=== PATIENT | female | born 1980 | race Two or more races ===

== ENCOUNTER 2018-09-24 18:45 | Emergency (ER) | payer OTHER ==
[2018-09-24 19:44] LABS: BASOPHILS # (AUTO) 0.1 10^3/uL (0.0-0.1); BASOPHILS % (AUTO) 0.6 %; EOSINOPHILS # (AUTO) 0.1 10^3/uL (0.0-0.7); EOSINOPHILS % (AUTO) 1.3 %; HGB - HEMOGLOBIN 10.6 g/dL (12.0-16.0); LYMPHOCYTES # (AUTO) 2.2 10^3/uL (1.5-3.5); LYMPHOCYTES % (AUTO) 22.4 %; MEAN CORPUSCULAR HEMOGLOBIN 26.9 pg (27.0-31.0); MEAN CORPUSCULAR HGB CONC 32.4 g/dL (32.0-36.0); MEAN PLATELET VOLUME 7.2 fL (7.9-10.8); MONOCYTES # (AUTO) 0.7 10^3/uL (0.0-1.0); MONOCYTES % (AUTO) 6.7 %; NEUTROPHILS # (AUTO) 6.8 10^3/uL (1.5-6.6); PLT - PLATELET COUNT 327 10^3/uL (130-450); RED BLOOD COUNT 3.94 10^6/uL (4.20-5.40); RED CELL DISTRIBUTION WIDTH 14.7 % (12.0-15.0); WHITE BLOOD COUNT 9.9 x10^3/uL (4.8-10.8)
[2018-09-24 19:59] LABS: ALBUMIN/GLOBULIN RATIO 1.1 (1.0-2.2); BILIRUBIN,TOTAL 0.7 mg/dL (0.2-1.0); CALCIUM 8.9 mg/dL (8.5-10.3); CREATININE 0.9 mg/dL (0.4-1.0); TOTAL PROTEIN 7.6 g/dL (6.7-8.2)
--- NOTE | 2018-09-24 20:01 | XRAY Report ---
Reason: Chest Pain Procedure Date: 09/24/2018 Accession Number: [id number] / [id number] Procedure: XR - Chest 1 View X-Ray CPT Code: 80052 FULL RESULT: EXAM: CHEST RADIOGRAPHY EXAM DATE: 09/24/2018 07:56 PM. CLINICAL HISTORY: Chest Pain. COMPARISON: None. TECHNIQUE: 1 view. FINDINGS: Lungs/Pleura: No focal opacities evident. No pleural effusion. No pneumothorax. Mediastinum: Within exam limitations, the cardiomediastinal contour is normal. Other: None. IMPRESSION: Normal single view chest. RADIA
--- NOTE | 2018-09-24 20:06 | ED Physician Documentation ---
History of Present Illness - Stated complaint Stated Complaint: SOA/TIGHTNESS - Chief complaint Chief Complaint: Resp - History obtained from History obtained from: Patient - History of Present Illness Timing: Yesterday Pain level now: 1 Improved by: exertion Worsened by: rest (patient points out that, paradoxically, she tends to only notice the dysnea and palpitations while at rest and not with activity) - Additonal information Additional information: c/o episodic dizziness, dyspnea (manifest as feeling she can't take a full breath in at times), palpitations (rapid, pounding) ,chest tightness. episode yesterday that resolved and again this evening Review of Systems Constitutional: denies: Fever, Chills, Sweats Cardiac: reports: Palpitations. denies: Chest pain / pressure, Pedal edema, Calf pain Respiratory: reports: Dyspnea. 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 - Present Medications Home Medications: Ambulatory Orders Medication Instructions Recorded Confirmed Levothyroxine Sodium [Synthroid] 09/24/18 Pnv95/Ferrous Fumarate/FA 09/24/18 09/24/18 [ Tablet] - Allergies Allergies/Adverse Reactions: Allergies Allergy/AdvReac Type Severity Reaction Status Date / Time No Known Drug Allergies Allergy Verified 09/24/18 19:07 - Social History Does the pt smoke?: No Smoking Status: Never smoker Does the pt drink ETOH?: Yes - Immunizations Immunizations are current?: Yes - POLST Patient has POLST: No PD ED PE NORMAL - Vitals Vital signs reviewed: Yes - General General: Alert and oriented X 3, No acute distress, Well developed/nourished - HEENT HEENT: Moist mucous membranes - Neck Neck: Supple, no meningeal sign - Cardiac Cardiac: RRR, No murmur, No gallop, No rub - Respiratory Respiratory: No respiratory distress, Clear bilaterally - Abdomen Abdomen: Soft, Non tender - Derm Derm: Normal color, Warm and dry - Extremities Extremities: No edema Results - Vitals Vitals: Vital Signs - 24 hr 09/24/18 09/24/18 09/24/18 19:03 19:16 19:57 Temperature 37.4 C Heart Rate 87 82 78 Respiratory 18 12 13 Rate Blood Pressure 146/71 H 151/73 H 121/75 O2 Saturation 100 100 100 09/24/18 21:15 Temperature 36.5 C Heart Rate 89 Respiratory 18 Rate Blood Pressure 136/82 H O2 Saturation 100 Oxygen O2 Source Room air - EKG (time done) No standard instances Rate: Rate (enter#) (89) Rhythm: NSR, LAE [place]: Normal Intervals: Normal HI QRS: Normal Ischemia: Normal ST segments - Labs Labs: Laboratory Tests 09/24/18 09/24/18 09/24/18 19:38 19:38 19:38 WBC 9.9 RBC 3.94 L Hgb 10.6 L Hct 32.7 L MCV 83.0 MCH 26.9 L MCHC 32.4 RDW 14.7 Plt Count 327 MPV 7.2 L Neut # (Auto) 6.8 H Lymph # (Auto) 2.2 [place] # (Auto) 0.7 Eos # (Auto) 0.1 Baso # (Auto) 0.1 Absolute Nucleated RBC 0.00 Nucleated RBC % 0.0 Sodium 137 Potassium 4.0 Chloride 104 Carbon Dioxide 28 Anion Gap 5.0 L BUN 19 Creatinine 0.9 Estimated GFR (MDRD) 70 L Glucose 106 H Calcium 8.9 Total Bilirubin 0.7 AST 15 ALT 15 Alkaline Phosphatase 51 Troponin I < 0.04 Total Protein 7.6 Albumin 4.0 Globulin 3.6 Albumin/Globulin Ratio 1.1 Lipase 50 TSH Free T4 09/24/18 19:38 WBC RBC Hgb Hct MCV MCH MCHC RDW Plt Count MPV Neut # (Auto) Lymph # (Auto) [place] # (Auto) Eos # (Auto) Baso # (Auto) Absolute Nucleated RBC Nucleated RBC % Sodium Potassium Chloride Carbon Dioxide Anion Gap BUN Creatinine Estimated GFR (MDRD) Glucose Calcium Total Bilirubin AST ALT Alkaline Phosphatase Troponin I Total Protein Albumin Globulin Albumin/Globulin Ratio Lipase TSH 2.16 Free T4 0.87 - Rads (name of study) chest xray Radiology: Prelim report reviewed, See rad report PD MEDICAL DECISION MAKING - ED course Complexity details: reviewed results, re-evaluated patient, considered differential, d/w patient Departure - Departure Disposition: 01 Home, Self Care Clinical Impression: Dyspnea, Chest pain, Palpitations Condition: Good Instructions: ED Chest Pain Atypical Unkn Cause, ED Dyspnea Shortness of Breath, ED Palpitations Follow-Up: PITO Berg [Provider Group] Discharge Date/Time: 09/24/18 21:20
[2018-09-24 20:26] LABS: THYROID STIMULATING HORMONE 2.16 uIU/mL (0.34-5.60)
[2018-09-24 20:28] LABS: FREE T4 (FREE THYROXINE) 0.87 ng/dL (0.58-1.64)
[2018-09-24 21:24] VITALS: BP 136/82
== END 2018-09-24 21:20 | disposition home or self-care (01) ==
LOC: ED 18:45
DX: R06.00 Dyspnea, unspecified (principal); R07.9 Chest pain, unspecified; R00.2 Palpitations; E03.9 Hypothyroidism, unspecified
CPT/HCPCS: 36415; 71045; 80053; 83690; 84439; 84443; 84484; 85025; 93005; 99283; 99284

== ENCOUNTER 2018-10-04 23:09 | Emergency (ER) | payer OTHER ==
[2018-10-04 23:45] LABS: BASOPHILS # (AUTO) 0.1 10^3/uL (0.0-0.1); EOSINOPHILS # (AUTO) 0.2 10^3/uL (0.0-0.7); EOSINOPHILS % (AUTO) 1.4 %; HGB - HEMOGLOBIN 10.6 g/dL (12.0-16.0); LYMPHOCYTES # (AUTO) 2.9 10^3/uL (1.5-3.5); LYMPHOCYTES % (AUTO) 25.3 %; MEAN CORPUSCULAR HEMOGLOBIN 27.4 pg (27.0-31.0); MEAN CORPUSCULAR HGB CONC 33.7 g/dL (32.0-36.0); MEAN CORPUSCULAR VOLUME 81.2 fL (81.0-99.0); MEAN PLATELET VOLUME 7.3 fL (7.9-10.8); MONOCYTES # (AUTO) 0.7 10^3/uL (0.0-1.0); MONOCYTES % (AUTO) 5.9 %; NEUTROPHILS # (AUTO) 7.6 10^3/uL (1.5-6.6); NEUTROPHILS % (AUTO) 66.4 %; PLT - PLATELET COUNT 354 10^3/uL (130-450); RED BLOOD COUNT 3.87 10^6/uL (4.20-5.40); RED CELL DISTRIBUTION WIDTH 13.8 % (12.0-15.0); WHITE BLOOD COUNT 11.5 x10^3/uL (4.8-10.8)
[2018-10-04 23:56] LABS: ALBUMIN 4.1 g/dL (3.2-5.5); ALBUMIN/GLOBULIN RATIO 1.1 (1.0-2.2); BILIRUBIN,TOTAL 0.6 mg/dL (0.2-1.0); CALCIUM 8.8 mg/dL (8.5-10.3); CREATININE 0.8 mg/dL (0.4-1.0); TOTAL PROTEIN 7.7 g/dL (6.7-8.2)
--- NOTE | 2018-10-05 04:08 | ED Physician Documentation ---
PD HPI DYSPNEA - Stated complaint Stated Complaint: SOA - Chief complaint Chief Complaint: Resp - History obtained from History obtained from: Patient - History of Present Illness Timing - onset: Today Timing - details: Abrupt onset, Intermittant Pain level now: 0 Associated symptoms: Palpitations. No: Fever, Cough, Hemoptysis, Wheezing, Chest pain / discomfort, Diaphoresis, Bilateral edema, Unilateral edema, Anxiety, Other Similar symptoms before: No diagnosis Recently seen: Clinic, Emergency Dept - Additional information Additional information: T+R from this ED for same sx 09/24, tests at that time did not yield diagnosis. She followed up with PMD, rx propranolol, iron supplements, and referred to cardiology (not yet scheduled). Returns due to increased frequency and severity of symptoms: palpitations and dyspnea. Denies pain including chest pain Review of Systems Constitutional: reports: Reviewed and negative Cardiac: reports: Palpitations. 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 Home Medications: Ambulatory Orders Medication Instructions Recorded Confirmed Levothyroxine Sodium [Synthroid] 09/24/18 Pnv95/Ferrous Fumarate/FA 09/24/18 09/24/18 [ Tablet] - Allergies Allergies/Adverse Reactions: Allergies Allergy/AdvReac Type Severity Reaction Status Date / Time No Known Drug Allergies Allergy Verified 10/04/18 23:17 - Social History Does the pt smoke?: No Smoking Status: Never smoker Does the pt drink ETOH?: Yes - Immunizations Immunizations are current?: Yes - POLST Patient has POLST: No PD ED PE NORMAL - Vitals Vital signs reviewed: Yes - General General: Alert and oriented X 3, No acute distress, Well developed/nourished - HEENT HEENT: Moist mucous membranes - Cardiac Cardiac: RRR, No murmur, No gallop, No rub - Respiratory Respiratory: No respiratory distress, Clear bilaterally - Abdomen Abdomen: Soft, Non tender - Derm Derm: Normal color, Warm and dry - Extremities Extremities: No edema Results - Vitals Vitals: Vital Signs - 24 hr 10/05/18 10/05/18 10/05/18 02:08 04:37 06:22 Heart Rate 79 77 76 Respiratory 12 17 17 Rate Blood Pressure 109/67 111/62 117/72 O2 Saturation 100 99 98 Oxygen O2 Source Room air - Labs Labs: Laboratory Tests 10/04/18 10/04/18 10/04/18 23:30 23:30 23:30 WBC 11.5 H RBC 3.87 L Hgb 10.6 L Hct 31.4 L MCV 81.2 MCH 27.4 MCHC 33.7 RDW 13.8 Plt Count 354 MPV 7.3 L Neut # (Auto) 7.6 H Lymph # (Auto) 2.9 [place] # (Auto) 0.7 Eos # (Auto) 0.2 Baso # (Auto) 0.1 Absolute Nucleated RBC 0.00 Nucleated RBC % 0.0 Sodium 136 Potassium 3.7 Chloride 102 Carbon Dioxide 25 Anion Gap 9.0 BUN 18 Creatinine 0.8 Estimated GFR (MDRD) 80 L Glucose 94 Calcium 8.8 Total Bilirubin 0.6 AST 18 ALT 16 Alkaline Phosphatase 57 Total Protein 7.7 Albumin 4.1 Globulin 3.6 Albumin/Globulin Ratio 1.1 Lipase 44 Blood Type B NEGATIVE Antibody Screen NEGATIVE - Rads (name of study) CT chest (PE study) Radiology: Prelim report reviewed, See rad report PD MEDICAL DECISION MAKING - ED course Complexity details: reviewed results, re-evaluated patient, considered differential, d/w patient Departure - Departure Disposition: 01 Home, Self Care Clinical Impression: Palpitations, Dyspnea Condition: Good Instructions: ED Dyspnea Shortness of Breath, ED Palpitations Follow-Up: ISAURA IGNACIO DO [Primary Care Provider] - Within 1 week Discharge Date/Time: 10/05/18 07:17
[2018-10-05] MEDS ORDERED: IOVERSOL 320 100 ML VIAL IVP ONE (04:44)
[2018-10-05] MEDS: IOVERSOL 320 100 ML VIAL IVP ONE (05:41)
--- NOTE | 2018-10-05 06:08 | CT Report ---
Reason: dyspnea, CP Procedure Date: 10/05/2018 Accession Number: [id number] / [id number] Procedure: CT - Chest Angio (PE) CPT Code: FULL RESULT: EXAM: CT ANGIOGRAM CHEST EXAM DATE: 10/05/2018 05:32 AM. CLINICAL HISTORY: Dyspnea and chest pain. COMPARISON: None. TECHNIQUE: Routine helical imaging was performed through the chest in the pulmonary arterial phase. IV Contrast: OPTI 320 80mL. Reconstructions: Coronal 3-D MIP reconstructions.Sagittal and coronal. In accordance with CT protocol optimization, one or more of the following dose reduction techniques were utilized for this exam: automated exposure control, adjustment of mA and/or KV based on patient size, or use of iterative reconstructive technique. FINDINGS: Pulmonary Arteries: There is a suboptimal opacification of the pulmonary arterial system. Motion further degrades exam sensitivity and specificity, particularly with regards to the main pulmonary artery. As visualized, no definite main or lobar pulmonary embolism demonstrated. Lungs and Pleura: No significant consolidation. No effusion or definite pneumothorax. Central Airways: Visualized central airways are without suspicious filling defects. Chest Wall: No significant abnormality. Thyroid: No significant abnormality. Mediastinum: No significant abnormality. Heart: Normal in size. No significant pericardial effusion. Aorta: Normal caliber. Upper Abdomen: No significant abnormality. Bones: No suspicious bony lesions evident. IMPRESSION: 1. There is suboptimal opacification of the pulmonary artery. No definite or lobar embolus. 2. No acute pulmonary abnormality demonstrated.
[2018-10-05 06:22] VITALS: BP 117/72
== END 2018-10-05 07:17 | disposition home or self-care (01) ==
LOC: ED 23:09
DX: R00.2 Palpitations (principal); R06.00 Dyspnea, unspecified; E03.9 Hypothyroidism, unspecified
CPT/HCPCS: 36415; 71275; 80053; 83690; 85025; 86850; 86900; 86901; 99283; 99284

== ENCOUNTER 2018-12-17 21:48 | Emergency (ER) | payer OTHER ==
[2018-12-17 22:22] LABS: BASOPHILS # (AUTO) 0.1 10^3/uL (0.0-0.1); BASOPHILS % (AUTO) 1.1 %; EOSINOPHILS # (AUTO) 0.2 10^3/uL (0.0-0.7); EOSINOPHILS % (AUTO) 2.2 %; HGB - HEMOGLOBIN 10.9 g/dL (12.0-16.0); LYMPHOCYTES # (AUTO) 2.8 10^3/uL (1.5-3.5); LYMPHOCYTES % (AUTO) 25.2 %; MEAN CORPUSCULAR HEMOGLOBIN 27.1 pg (27.0-31.0); MEAN CORPUSCULAR HGB CONC 33.4 g/dL (32.0-36.0); MEAN CORPUSCULAR VOLUME 81.1 fL (81.0-99.0); MEAN PLATELET VOLUME 7.5 fL (7.9-10.8); MONOCYTES # (AUTO) 0.7 10^3/uL (0.0-1.0); MONOCYTES % (AUTO) 6.7 %; NEUTROPHILS # (AUTO) 7.2 10^3/uL (1.5-6.6); NEUTROPHILS % (AUTO) 64.8 %; PLT - PLATELET COUNT 324 10^3/uL (130-450); RED BLOOD COUNT 4.05 10^6/uL (4.20-5.40); WHITE BLOOD COUNT 11.1 x10^3/uL (4.8-10.8)
[2018-12-17 22:36] LABS: ALBUMIN 4.2 g/dL (3.2-5.5); ALBUMIN/GLOBULIN RATIO 1.1 (1.0-2.2); BILIRUBIN,TOTAL 0.8 mg/dL (0.2-1.0); CALCIUM 9.1 mg/dL (8.5-10.3); CREATININE 0.8 mg/dL (0.4-1.0); TOTAL PROTEIN 8.2 g/dL (6.7-8.2)
--- NOTE | 2018-12-17 22:48 | XRAY Report ---
Reason: Chest Pain Procedure Date: 12/17/2018 Accession Number: [id number] / [id number] Procedure: XR - Chest 1 View X-Ray CPT Code: 25943 FULL RESULT: EXAM: CHEST RADIOGRAPHY EXAM DATE: 12/17/2018 10:40 PM. CLINICAL HISTORY: Chest pain COMPARISON: CHEST 1 VIEW 09/24/2018 7:42 PM. TECHNIQUE: 1 view. FINDINGS: Lungs/Pleura: No focal consolidation or evidence of edema. No pleural effusion or pneumothorax. Mediastinum: Normal cardiomediastinal contour. Other: None. IMPRESSION: Normal single view chest. RADIA
--- NOTE | 2018-12-17 23:15 | ED Physician Documentation ---
PD HPI DYSPNEA - Stated complaint Stated Complaint: NAUSEA CHEST PX - Chief complaint Chief Complaint: Cardiac - History obtained from History obtained from: Patient - History of Present Illness Timing - onset: How many days ago (4) Timing - onset during: Rest Timing - duration: Days (4) Timing - details: Gradual onset, Still present, Waxing and waning Inciting event(s): Emotional event Improved by: Other (distraction) Worsened by: Other (rest) Similar symptoms before: No diagnosis Recently seen: Emergency Dept - Additional information Additional information: 38-year-old previously well female has had symptoms of palpitations shortness of breath and chest pain and she has been evaluated for this twice previously in the emergency department. Her notes that she seems to have these symptoms when she is at rest and not distracted by anything. The patient herself has concerns that all of her symptoms are related to some physical ailment and she acknowledges that anxiety could be the underlying issue. Review of Systems Constitutional: denies: Fever Eyes: denies: Decreased vision Ears: denies: Ear pain Nose: denies: Rhinorrhea / runny nose, Congestion Throat: denies: Sore throat Cardiac: reports: Chest pain / pressure, Palpitations. denies: Pedal edema, Calf pain Respiratory: reports: Dyspnea. 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 - Present Medications Home Medications: Ambulatory Orders Medication Instructions Recorded Confirmed Levothyroxine Sodium [Synthroid] 09/24/18 Pnv95/Ferrous Fumarate/FA 09/24/18 09/24/18 [ Tablet] RX: traZODone [Desyrel] 50 mg PO HS #30 tablet 12/18/18 - Allergies Allergies/Adverse Reactions: Allergies Allergy/AdvReac Type Severity Reaction Status Date / Time No Known Drug Allergies Allergy Verified 10/04/18 23:17 - Social History Does the pt smoke?: No Smoking Status: Never smoker Does the pt drink ETOH?: Yes - Immunizations Immunizations are current?: Yes - POLST Patient has POLST: No PD ED PE NORMAL - Vitals Vital signs reviewed: Yes (normal ) - General General: Alert and oriented X 3, No acute distress, Well developed/nourished - HEENT HEENT: Atraumatic, PERRL, EOMI, Ears normal, Moist mucous membranes, Pharynx benign - Neck Neck: Supple, no meningeal sign, No bony TTP - Cardiac Cardiac: RRR, No murmur - Respiratory Respiratory: No respiratory distress, Clear bilaterally - Abdomen Abdomen: Soft, Non tender - Back Back: No CVA TTP, No spinal TTP - Derm Derm: Normal color, Warm and dry, No rash - Extremities Extremities: No deformity, No edema - Neuro Neuro: Alert and oriented X 3, emblem maker 2-12 intact, No motor deficit, No sensory deficit, Normal speech Eye Opening: Spontaneous Motor: Obeys Commands Verbal: Oriented GCS Score: 15 - Psych Psych: Normal mood, Normal affect Results - Vitals Vitals: Vital Signs - 24 hr 12/17/18 12/17/18 12/18/18 21:55 22:24 01:28 Temperature 36.2 C L Heart Rate 84 81 82 Respiratory 18 18 16 Rate Blood Pressure 128/75 128/75 151/88 H O2 Saturation 100 100 98 Oxygen O2 Source Room air - EKG (time done) 2204 Rate: Rate (enter#) (86) Rhythm: LAE Compare to prior EKG: Unchanged from prior EKG (SPT 09-24-18 no changes ) Computer interpretation: Agree with computer - Labs Labs: Laboratory Tests 12/17/18 12/17/18 12/17/18 22:13 22:13 22:13 WBC 11.1 H RBC 4.05 L Hgb 10.9 L Hct 32.8 L MCV 81.1 MCH 27.1 MCHC 33.4 RDW 14.0 Plt Count 324 MPV 7.5 L Neut # (Auto) 7.2 H Lymph # (Auto) 2.8 [place] # (Auto) 0.7 Eos # (Auto) 0.2 Baso # (Auto) 0.1 Absolute Nucleated RBC 0.01 Nucleated RBC % 0.1 Sodium 136 Potassium 3.6 Chloride 101 Carbon Dioxide 28 Anion Gap 7.0 BUN 20 Creatinine 0.8 Estimated GFR (MDRD) 80 L Glucose 107 H Calcium 9.1 Total Bilirubin 0.8 AST 19 ALT 16 Alkaline Phosphatase 57 Troponin I < 0.04 Total Protein 8.2 Albumin 4.2 Globulin 4.0 Albumin/Globulin Ratio 1.1 Lipase 54 H - Rads (name of study) chest Radiology: Prelim report reviewed (Impression: Normal single view chest.), EMP read indepedently, See rad report PD MEDICAL DECISION MAKING - ED course Complexity details: reviewed old records, reviewed results, re-evaluated patient, considered differential, d/w patient, d/w family ED course: 38-year-old female with vague symptoms of palpitations and shortness of breath that have come and gone and episodes has been evaluated here in the emergency department twice previously and today again her evaluation is unremarkable. She is concerned about somatic symptoms she is having and correlating them with abnormalities and she is been found to have a mild anemia and she is correlating all of her symptoms with this. Her anemia is not bad enough to cause symptoms. She is found to be euvolemic here in the emergency department and I suspect her symptoms are related to anxiety. We discussed the treatment of anxiety and she does have some problems with sleep and I offered to provide medication for her issues with sleep. She will try some trazodone and she does have a primary care doctor to follow-up with. Departure - Departure Disposition: 01 Home, Self Care Clinical Impression: Anxiety Condition: Stable Instructions: ED Stress React, ED Panic Attack Follow-Up: ISAURA IGNACIO DO [Primary Care Provider] - Prescriptions: RX: traZODone [Desyrel] 50 mg PO HS #30 tablet Comments: Today here in the emergency department it appears the symptoms you are having are related to anxiety. Follow-up with your primary care doctor as the mainstay of treatment for anxiety is counselling. Your sleep can make a difference in how you relate to anxiety and I am recommending you try the trazodone for sleep until your follow up. Discharge Date/Time: 12/18/18 01:33
[2018-12-18 01:29] VITALS: BP 151/88
== END 2018-12-18 01:33 | disposition home or self-care (01) ==
LOC: ED 21:48
DX: F41.9 Anxiety disorder, unspecified (principal); E03.9 Hypothyroidism, unspecified
CPT/HCPCS: 36415; 71045; 80053; 83690; 84484; 85025; 93005; 99283; 99284

== ENCOUNTER 2019-07-05 06:50 | Day surgery (SDC) | payer OTHER ==
[2019-07-05] MEDS ORDERED: fentaNYL 100 MCG/2 ML VIAL IVP ONE (06:51)
[2019-07-05] MEDS ORDERED: MIDAZOLAM 2 MG/2 ML VIAL IVP ONE (06:51)
[2019-07-05] MEDS ORDERED: LACTATED RINGERS 1,000 ML IV ONE (06:57)
[2019-07-05 07:19] LABS: HCG UR QUAL NEGATIVE
[2019-07-05 09:43] VITALS: BP 113/74
== END 2019-07-05 06:51 | disposition home or self-care (01) ==
LOC: SDS 06:50
PROVIDERS: ATTEND Internal Medicine
PROC: 0DJ08ZZ Inspection of Upper Intestinal Tract, Via Natural or Artificial Opening Endoscopic (ICD-10-PCS; principal; 2019-07-05 08:30)
DX: K25.9 Gastric ulcer, unspecified as acute or chronic, without hemorrhage or perforation (principal)
CPT/HCPCS: 43235; 81025; J7120

== ENCOUNTER 2019-10-09 21:31 | Emergency (ER) | payer OTHER ==
[2019-10-09] MEDS ORDERED: PSEUDOEPHEDRINE 30 MG TABLET PO STA (22:49)
[2019-10-09] MEDS ORDERED: IBUPROFEN 800 MG TABLET PO STA (22:50)
--- NOTE | 2019-10-09 22:52 | ED Physician Documentation ---
History of Present Illness - Stated complaint Stated Complaint: ALVAREZ/NK PX - Chief complaint Chief Complaint: Heent - History obtained from History obtained from: Patient - History of Present Illness Timing: How many weeks ago (1) Pain level max: 6 Pain level now: 5 - Additonal information Additional information: 39-year-old female states that she has sinus congestion and swelling. No fevers. She saw her doctor last week, was placed on prednisone, Flonase and Augmentin. She took the prednisone and the Augmentin. Did not take Flonase. This is worse with moving her head. Better with rest. 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 - Present Medications Home Medications: Ambulatory Orders Medication Instructions Recorded Confirmed Levothyroxine Sodium [Synthroid] 100 mcg PO DAILY 09/24/18 07/05/19 Pnv No.95/Ferrous Fum/Folic AC 1 tab PO DAILY 09/24/18 07/05/19 [ Tablet] Cetirizine HCl/Pseudoephedrine 1 each PO BID PRN #30 tab.er.12h 10/09/19 [Zyrtec-D Tablet] Oxymetazoline HCl [Afrin] 1 sprays PITO BID PRN #1 bottle 10/09/19 - Allergies Allergies/Adverse Reactions: Allergies Allergy/AdvReac Type Severity Reaction Status Date / Time No Known Drug Allergies Allergy Verified 10/09/19 21:46 - Social History Does the pt smoke?: No Smoking Status: Never smoker Does the pt drink ETOH?: Yes Does the pt have substance abuse?: No - Immunizations Immunizations are current?: Yes - POLST Patient has POLST: No PD ED PE NORMAL - Vitals Vital signs reviewed: Yes - General General: Alert and oriented X 3, No acute distress, Well developed/nourished - HEENT HEENT: PERRL, Ears normal, Moist mucous membranes, Pharynx benign, Other (TTP over the frontal sinuses) - Neck Neck: Supple, no meningeal sign - Cardiac Cardiac: RRR, Strong equal pulses - Respiratory Respiratory: No respiratory distress, Clear bilaterally - Abdomen Abdomen: Soft, Non tender, Non distended - Derm Derm: Warm and dry - Neuro Neuro: Alert and oriented X 3 - Psych Psych: Normal mood, Normal affect Results - Vitals Vitals: Vital Signs - 24 hr 10/09/19 21:40 Temperature 36.4 C L Heart Rate 88 Respiratory 18 Rate Blood Pressure 146/108 H O2 Saturation 98 Oxygen O2 Source Room air PD MEDICAL DECISION MAKING - ED course Complexity details: considered differential, d/w patient, d/w family ED course: Patient appears to have sinusitis. We will have her finish her antibiotics. We will place her on decongestants as well. She needs to take her Flonase as well. Patient is well-appearing, nontoxic. Afebrile. Patient counseled regarding signs and symptoms for which I believe and urgent re-evaluation would be necessary. Patient with good understanding of and agreement to plan and is comfortable going home at this time This document was made in part using voice recognition software. While efforts are made to proofread this document, sound alike and grammatical errors may occur. Departure - Departure Disposition: 01 Home, Self Care Clinical Impression: Sinusitis Qualifiers: Sinusitis location: pansinusitis Chronicity: acute Recurrence: non-recurrent Qualified Code(s): J01.40 - Acute pansinusitis, unspecified Condition: Good Instructions: ED Sinusitis No Abx Follow-Up: ISAURA IGNACIO DO [Primary Care Provider] - Within 1 week Prescriptions: Cetirizine HCl/Pseudoephedrine [Zyrtec-D Tablet] 1 each PO BID PRN #30 tab.er.12h PRN Reason: nasal congestion Oxymetazoline HCl [Afrin] 1 sprays PITO BID PRN #1 bottle PRN Reason: Nasal Congestion Comments: Finish the antibiotics at home. Start the Flonase. Return if you worsen. Follow-up with your doctor for further care.
[2019-10-09] MEDS ORDERED: CHERRY SYRUP 10 ML UDC PO ONE (22:53)
[2019-10-09] MEDS ORDERED: DEXAMETHASONE 10 MG/ML VIAL PO STA (22:53)
[2019-10-09 23:05] VITALS: BP 144/92
== END 2019-10-09 23:05 | disposition home or self-care (01) ==
LOC: ED 21:31
DX: J01.40 Acute pansinusitis, unspecified (principal)
CPT/HCPCS: 99282; 99284; A9270

== ENCOUNTER 2020-08-29 08:40 | Outpatient (CLI) | payer OTHER ==
--- NOTE | 2020-08-30 11:46 | Mammography Report ---
BILATERAL DIGITAL SCREENING MAMMOGRAM 3D/2D: 08/29/2020 CLINICAL: Baseline exam. Routine screening. No prior exams were available for comparison. The tissue of both breasts is heterogeneously dense. T his may lower the sensitivity of mammography. No significant masses, calcifications, or other findings are seen in either breast. IMPRESSION: NEGATIVE There is no mammographic evidence of malignancy. A 1 year screening mammogram is recommended. This exam was interpreted at Station ID: [id number]. NOTE: For mammograms, a report in lay terms will be sent to the patient. Approximately 15% of breast malignancies will not be visualized mammographically. In the management of a palpable breast mass, a negative mammogram must not discourage biopsy of a clinically suspicious lesion. Electronically Signed By: Gideon Heck M.D., jr/raza:08/29/2020 10:58:52 ACR BI-RADS Category 1: Negative 3341F PARENCHYMAL PATTERN: (D) - The breast(s) demonstrate(s) heterogeneously dense fibroglandular parl[place] ma. BI-RADS CATEGORY: (1) - 1 RECOMMENDATION: (ANNUAL) - Recommend routine annual screening mammography. [id number] 1 year screening LATERALITY: (B)
== END 2020-08-29 08:41 | disposition home or self-care (01) ==
LOC: DI.N 08:40
DX: Z12.31 Encounter for screening mammogram for malignant neoplasm of breast (principal)
CPT/HCPCS: 77063; 77067